=== PATIENT | female | born 1940 | race Caucasian/White ===

== ENCOUNTER 2017-08-11 16:38 | Emergency (ER) | payer MEDICARE, OTHER ==
[2017-08-11] MEDS: DIATR MEGLU/DIATRIZOATE SODIUM 30 ML SOLUTION PO (17:00)
[2017-08-11] MEDS ORDERED: DIATR MEGLU/DIATRIZOATE SODIUM 120 ML BTL (17:56)
== END 2017-08-11 19:44 | disposition home or self-care (01) ==
LOC: E/R 16:38
DX: K94.23 Gastrostomy malfunction (principal); E66.9 Obesity, unspecified; J44.9 Chronic obstructive pulmonary disease, unspecified; I10 Essential (primary) hypertension; I50.9 Heart failure, unspecified; E11.9 Type 2 diabetes mellitus without complications; Z79.84 Long term (current) use of oral hypoglycemic drugs; Z79.82 Long term (current) use of aspirin; Z68.27 Body mass index [BMI] 27.0-27.9, adult
CPT/HCPCS: 43760; 74018; 99283-25